=== PATIENT | male | born 1945 | race Caucasian/White ===

== ENCOUNTER → 2017-09-28 | Outpatient (CLI) | payer OTHER, MEDICARE ==
--- NOTE | 2017-09-28 08:24 | DIAGNOSTIC IMAGING REPORT ---
SINUSES WITH BRAIN LAB CT DOSE: 305.32 mGycm HISTORY: Sinusitis CHRONIC SINUSITIS TECHNIQUE: Multiaxial CT images of the paranasal sinuses were performed and reformatted in the coronal plane without the use of contrast. A dose lowering technique was utilized adhering to the principles of ALARA. COMPARISON: None. FINDINGS: The frontal sinuses, ethmoid air cells, sphenoid sinuses, and bilateral maxillary antra are clear. The mastoid air cells are clear. The bilateral ostiomeatal units are patent. The nasal septum is midline. The orbits are unremarkable. Mild hypertrophic change of the nasal turbinates creating mild degree of nasal occlusive change. Mild nasal septal displacement to the left. IMPRESSION: The paranasal sinuses and mastoid air cells are clear. Mild/moderate hypertrophic changes of nasal turbinates. Moderate nasal occlusive change. The above report was generated using voice recognition software. It may contain grammatical, syntax or spelling errors. Electronically signed by: Luis Brown M.D. 09/28/2017 8:23 AM Dictated Date/Time: 09/28/2017 7:58 AM
== END | disposition home or self-care (01) ==
LOC: C.CTS 07:42
PROVIDERS: ATTEND Otolaryngology
DX: J32.9 Chronic sinusitis, unspecified (principal)

== ENCOUNTER 2017-10-31 20:43 | Emergency (ER) | payer OTHER, MEDICARE ==
[~2017-10-31] VITALS: Ht 174 cm; Wt 80.5 kg
[2017-10-31 20:45] VITALS: TEMP 36.7; Ht 174 cm; Wt 80.5 kg
[2017-10-31 21:40] LABS: BASO % 0.2 %; BASO ABS # 0.02 K/uL (0-0.2); EOS % 0.5 %; EOS ABS # 0.04 K/uL (0-0.5); HEMATOCRIT 43.5 % (42-52); HEMOGLOBIN 14.9 g/dL (14.0-18.0); IG# 0.04 K/uL (0.00-0.02); LYMPH % 14.4 %; LYMPH ABS # 1.19 K/uL (1.2-3.4); MEAN CELL VOLUME 88.8 fL (80-100); MEAN CORPUSCULAR HEMOGLOBIN 30.4 pg (25-34); MEAN CORPUSCULAR HGB CONC 34.3 g/dl (32-36); MEAN PLATELET VOLUME 10.1 fL (7.4-10.4); MONO % 3.6 %; NEUT % 80.8 %; NEUT ABS # 6.66 K/uL (1.4-6.5); PLATELET COUNT 222 K/uL (130-400); RED CELL DISTRIBUTION WIDTH CV 13.4 % (11.5-14.5); RED CELL DISTRIBUTION WIDTH SD 43.4 fL (36.4-46.3); WHITE BLOOD COUNT 8.25 K/uL (4.8-10.8)
[2017-10-31 22:06] LABS: ALBUMIN 3.8 gm/dl (3.4-5.0); CALCIUM 8.6 mg/dl (8.5-10.1); CREATININE 1.54 mg/dl (0.60-1.40); POTASSIUM 3.6 mmol/L (3.5-5.1)
[2017-10-31 22:09] LABS: TOTAL PROTEIN 7.5 gm/dl (6.4-8.2)
--- NOTE | 2017-10-31 22:22 | DIAGNOSTIC IMAGING REPORT ---
L WRIST MIN 3 VIEWS ROUTINE, L HAND MIN 3 VIEWS ROUTINE CLINICAL HISTORY: left wrist and hand injury; hit with baseball COMPARISON STUDY: None. FINDINGS: Soft tissue swelling within the left wrist. No fracture or dislocation. Deformity and shortening within the index finger with erosions at the DIP and PIP joint. Additional erosions within the MCP joints, first carpometacarpal joint, and triquetral bone. There is advanced osteoarthritis within the first carpometacarpal joint and mild to moderate osteoarthritis within the MCP, PIP, DIP joints of the hand. Soft tissue swelling within the index finger. IMPRESSION: 1. No acute fractures identified within the left hand or left wrist. 2. Soft tissue swelling within the left wrist. 3. Erosions within the left hand and wrist as described above most pronounced at the index finger consistent with psoriatic arthritis. There is superimposed osteoarthritis within the hand and wrist as described above. Electronically signed by: Abhay Trevizo M.D. 10/31/2017 10:21 PM Dictated Date/Time: 10/31/2017 10:17 PM
--- NOTE | 2017-10-31 22:46 | EMERGENCY ROOM VISIT NOTE ---
History First contact with patient: 20:54 Chief Complaint: HAND PAIN/INJURY Stated Complaint: HIT WITH BASEBALL- LEFT HAND, PASSED OUT History of Present Illness The patient is a 72 year old male who presents to the Emergency Room with complaints of an injury to his left hand. 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 The patient's is concerned because she feels he may have passed out. The patient reports that he had a significant amount of pain following the injury and lost his balance when he went to sit down. The animal trainer evaluated him there and reported that his blood pressure was low at that time. The patient is feeling much better now and rates his discomfort a 1/10. His states that he has been very tired for the past few weeks. The patient denies any further concerns. He denies any numbness or weakness of the hand. He denies chest pain or shortness of breath. Review of Systems A complete 10 point review of systems was reviewed with the patient with pertinent positives and negatives as per history of present illness. All else were negative. Past Medical/Surgical History Medical Problems: (1) No significant active problems Social History Smoking Status: Never Smoker Alcohol Use: none Housing Status: lives with family Physical Exam Vital Signs Date Time Temp Pulse Resp B/P (MAP) Pulse Ox O2 Delivery O2 Flow Rate FiO2 10/31/17 23:02 74 16 136/78 98 10/31/17 20:45 36.7 84 16 133/80 96 Room Air Physical Exam VITALS: Vitals are noted on the nurse's note and reviewed by myself. Vital signs stable. GENERAL: This is a 72-year-old male, in no acute distress, nondiaphoretic, well- developed well-nourished. SKIN: There is some mild swelling and ecchymosis over the lateral aspect of the left dorsal wrist/hand. EARS: External auditory canals clear, tympanic membranes pearly almaguer without erythema or effusion bilaterally. EYES: Pupils equal round and reactive to light and accommodation. Extraocular movements intact. MOUTH: Mucous membranes moist. Tonsils are not enlarged. Pharynx without erythema or exudate. NECK: Supple without nuchal rigidity. No lymphadenopathy. HEART: Regular rate and rhythm without murmurs gallops or rubs. LUNGS: Clear to auscultation bilaterally without wheezes, rales or rhonchi. No retractions or accessory muscle use. MUSCULOSKELETAL: Strength 5/5 throughout. NEURO: Patient was alert and oriented to person place and time. No focal neurological deficits. Medical Decision & Procedures ER Provider Diagnostic Interpretation: L WRIST MIN 3 VIEWS ROUTINE, L HAND MIN 3 VIEWS ROUTINE CLINICAL HISTORY: left wrist and hand injury; hit with baseball COMPARISON STUDY: None. FINDINGS: Soft tissue swelling within the left wrist. No fracture or dislocation. Deformity and shortening within the index finger with erosions at the DIP and PIP joint. Additional erosions within the MCP joints, first carpometacarpal joint, and triquetral bone. There is advanced osteoarthritis within the first carpometacarpal joint and mild to moderate osteoarthritis within the MCP, PIP, DIP joints of the hand. Soft tissue swelling within the index finger. IMPRESSION: 1. No acute fractures identified within the left hand or left wrist. 2. Soft tissue swelling within the left wrist. 3. Erosions within the left hand and wrist as described above most pronounced at the index finger consistent with psoriatic arthritis. There is superimposed osteoarthritis within the hand and wrist as described above. Electronically signed by: Abhay Trevizo M.D. Laboratory Results 10/31/17 21:19 Red Blood Count 4.90, Mean Corpuscular Volume 88.8, Mean Corpuscular Hemoglobin 30.4, Mean Corpuscular Hemoglobin Concent 34.3, Mean Platelet Volume 10.1, Neutrophils (%) (Auto) 80.8, Lymphocytes (%) (Auto) 14.4, Monocytes (%) (Auto) 3.6, Eosinophils (%) (Auto) 0.5, Basophils (%) (Auto) 0.2, Neutrophils # (Auto) 6.66, Lymphocytes # (Auto) 1.19, Monocytes # (Auto) 0.30, Eosinophils # (Auto) 0.04, Basophils # (Auto) 0.02 10/31/17 21:19 Test 10/31/17 21:19 White Blood Count 8.25 K/uL (4.8-10.8) Red Blood Count 4.90 M/uL (4.7-6.1) Hemoglobin 14.9 g/dL (14.0-18.0) Hematocrit 43.5 % (42-52) Mean Corpuscular Volume 88.8 fL (80-100) Mean Corpuscular Hemoglobin 30.4 pg (25-34) Mean Corpuscular Hemoglobin Concent 34.3 g/dl (32-36) Platelet Count 222 K/uL (130-400) Mean Platelet Volume 10.1 fL (7.4-10.4) Neutrophils (%) (Auto) 80.8 % Lymphocytes (%) (Auto) 14.4 % Monocytes (%) (Auto) 3.6 % Eosinophils (%) (Auto) 0.5 % Basophils (%) (Auto) 0.2 % Neutrophils # (Auto) 6.66 K/uL (1.4-6.5) Lymphocytes # (Auto) 1.19 K/uL (1.2-3.4) Monocytes # (Auto) 0.30 K/uL (0.11-0.59) Eosinophils # (Auto) 0.04 K/uL (0-0.5) Basophils # (Auto) 0.02 K/uL (0-0.2) RDW Standard Deviation 43.4 fL (36.4-46.3) RDW Coefficient of Variation 13.4 % (11.5-14.5) Immature Granulocyte % (Auto) 0.5 % Immature Granulocyte # (Auto) 0.04 K/uL (0.00-0.02) Urine Color YELLOW Urine Appearance CLEAR (CLEAR) Urine pH 5.5 (4.5-7.5) Urine Specific [place] 1.022 (1.000-1.030) Urine Protein NEG (NEG) Urine Glucose (UA) NEG (NEG) Urine Ketones NEG (NEG) Urine Occult Blood NEG (NEG) Urine Nitrite NEG (NEG) Urine Bilirubin NEG (NEG) Urine Urobilinogen NEG (NEG) Urine Leukocyte Esterase NEG (NEG) Anion Gap 6.0 mmol/L (3-11) Est Creatinine Clear Calc Drug Dose 42.0 ml/min Estimated GFR () 51.1 Estimated GFR (Non- 44.1 BUN/Creatinine Ratio 16.8 (10-20) Calcium Level 8.6 mg/dl (8.5-10.1) Total Bilirubin 0.5 mg/dl (0.2-1) Aspartate Amino Transf (AST/SGOT) 28 U/L (15-37) Alanine Aminotransferase (ALT/SGPT) 32 U/L (12-78) Alkaline Phosphatase 80 U/L (45-117) Total Protein 7.5 gm/dl (6.4-8.2) Albumin 3.8 gm/dl (3.4-5.0) Globulin 3.7 gm/dl (2.5-4.0) Albumin/Globulin Ratio 1.0 (0.9-2) ECG Per My Interpretation Indication: weakness Rate (beats per minute): 81 Rhythm: normal sinus Findings: no acute ischemic change, no ectopy Comparison ECG Date: no prior available Medical Decision Differential diagnosis includes fracture, contusion, sprain, vasovagal response , anemia, arrhythmia, among others. The patient is a 72-year-old male who presents today complaining of an injury to his left hand and wrist. X-rays showed no acute fractures. Further workup was obtained because of patient's 's concern of possible syncopal episode. Labs revealed no leukocytosis, anemia or concerning electrolyte abnormalities. Creatinine slightly elevated at 1.54, although this is likely patient's baseline as his most recent creatinine was done several years ago at 1.3. EKG shows normal sinus rhythm without ischemic changes or ectopy. Patient's response was likely a vagal response to pain. He was advised to follow-up closely with his PCP this week for follow-up. The patient was independently evaluated by Dr. Skinner, ED attending physician, who agreed with my assessment and treatment plan. Based on the patient's presentation and work up, I feel the patient is stable for outpatient treatment. The patient was educated to return to the emergency department for any worsening of their current condition or new/concerning symptoms. He will follow up with his PCP. Medication Reconcilliation Current Medication List: was personally reviewed by me Blood Pressure Screening Patient's blood pressure: Normal blood pressure Impression Primary Impression: Contusion of left hand Additional Impression: Vasovagal response Departure Information Dispostion Home / Self-Care Condition GOOD Referrals Elijah Marcos M.D. (PCP) Patient Instructions My [facility] Additional Instructions For pain control, you can use the following [id number] medicines (if >12 yo): - Regular strength (325mg/tab) Tylenol (acetaminophen) 2 tabs every 4-6 hours as needed. Do not exceed 12 tablets in a 24 hour period. Avoid taking more than 4 grams (4000 mg) of Tylenol per day. This includes any other sources of acetaminophen you may take on a regular basis. Apply ice to the hand to help reduce swelling. Follow-up with your primary care provider this week for a recheck. Return to the emergency department with any worsening or new/concerning symptoms. Problem Qualifiers
[2017-10-31 23:02] VITALS: BP 136/78; PULSE 74; O2SAT 98
== END 2017-10-31 23:10 | disposition home or self-care (01) ==
LOC: C.EDB 20:44 → C.EDD 23:10
DX: S60.222A Contusion of left hand, initial encounter (principal); R55 Syncope and collapse; W21.89XA Striking against or struck by other sports equipment, initial encounter

== ENCOUNTER 2021-06-03 18:10 | Inpatient (IN) ==
[2021-06-03] MEDS ORDERED: SODIUM CHLORIDE 0.9% 1000ML 1,000 ML IV SCH (18:30)
--- NOTE | 2021-06-03 18:36 | Emergency Department Note ---
Impression & Plan COVID-19, Weakness, Rhabdomyolysis due to COVID-19 ED Provider Note Provider: Jag Lemons MD DATE OF SERVICE: 06/03/2021 CHIEF COMPLAINT: Fatigue, no appetite HISTORY OF PRESENT ILLNESS: Patient is a 76-year-old gentleman history of NPH status post shunt several years ago as well as renal carcinoma presenting via ambulance today from home. Patient has been sick for about 10 days with initially cold type symptoms. Was seen here 2 days ago in the ER and diagnosed with Covid per his with the patient limited contact via phone. Patient himself states that he just feels generally weak and has no appetite. Denies diarrhea or abdominal pain or nausea. Reports a mild diffuse myalgias but denies difficulty breathing. Minimal cough. No fevers reported. No falls or syncope. Patient states yesterday had difficult time getting off of the toilet and had a weight for more than an hour as he did want to bother his . Again he denies falls. Discussed with the patient she reports that he is just very weak and fatigued. She states he did have some loose [place] last night. She states that he has had some memory issues for a little while and they have been following with neurosurgery and [facility] in [place] regarding this. She reports that he is not vaccinated and has not had recent fever. REVIEW OF SYSTEMS: A total of 10 review of systems was obtained and negative except as stated above in the HPI. PAST MEDICAL HISTORY: As noted above MEDICATIONS: Denies current prescription medications SOCIAL HISTORY: Lives at home with PHYSICAL EXAM: GENERAL: alert and oriented in no acute distress on stretcher but fatigued Head: Atraumatic with evidence of right frontal subcutaneous shunt in place. EYES: No injection, discharge or icterus. PERRL NECK: Trachea midline. LUNGS: Airway patent. No retractions or tachypnea HEART: Regular rate and rhythm. No chest wall tenderness ABDOMEN: Soft and non-tender, without guarding or rebound. SKIN: Acyanotic, warm, dry, without rashes EXTREMITIES: Without swelling, tenderness or deformity NEUROLOGICAL: No focal deficits. No aphasia. No facial droop or slurred speech. Little bit of mild slowness to his memory during discussion. Normal strength and tone in the extremities. Sensation to gross touch normal. EK bpm normal sinus rhythm without PVC or PAC. No acute ST segment elevation or depression with a QTC of 440. Slight baseline artifact is noted. CONTINUOUS CARDIAC MONITORING: was ordered and showed a heart rate of 70s-80s bpm in normal sinus rhythm Patient's laboratory studies and imaging reviewed. Differential includes Infection, dehydration, metabolic abnormality, hypo/hyper glycemia, electrolyte disturbance, anemia, hypoxia, cardiac sources, intracerebral event, toxicologic, neurologic, as well as other pathologies. IMPRESSION/MEDICAL DECISION MAKING: Patient seen here 2 days ago and had positive Covid test. Sick for 10 days. Not vaccinated. Not hypoxic and denies significant respiratory symptoms. No trauma or syncope reported by patient or his via phone. Patient had imaging including shunt series 2 days ago without acute findings. Report of may be some loose Nations last night but the patient other than being a bit forgetful around exact details of his recent illness is following commands and moving all extremities without slurred speech or. Basic labs are completed. Benign abdomen. Do not believe the patient is meningitic. Improvement of white blood cell count and no anemia noted on blood work today. Some mild thrombocytopenia has developed likely viral related to his Covid illness. Mild hyponatremia similar to previous and improved renal function today compared to 2 days ago. AST more elevated but ALT not elevated consistent likely with viral inflammatory changes. CTs of the head without acute change. No troponin elevation. CPK is elevated likely related to his viral Covid infection and consistent with his myalgias. No significant trauma reported. Given some fluid hydration here and discussed with the patient as well as via phone recommendation for further care here at the hospital. Patient does not seem to be acutely hallucinating or altered at this time although he seems fatigued. DIAGNOSIS: COVID-19, weakness, rhabdomyolysis DISPOSITION: Hospitalist will evaluate Patient was agreeable with this plan. 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 Hyperlipidemia Incontinence Lumbar radiculopathy Mild cognitive impairment Muscular weakness No significant active problems NPH (normal pressure hydrocephalus) Stroke-like symptoms Urinary frequency Urinary urgency Ventricular dilatation Surgical History History of brain shunt History of carpal tunnel surgery of right wrist History of inguinal hernia repair History of tonsillectomy Hx of cataract surgery Family History Mother Diabetes Colon cancer Stroke Grandmother Diabetes Father Cardiac disorder Myasthenia gravis Grandmother Heart failure Family/Other Black lung Social History Smoking Status: Never smoker Hx Alcohol Use: No Hx Substance Use: No Preferred Language: Nepalese Communication Ability: Effective Visual Impairment: Limited Hearing Ability: Normal Utilization Engineer Required: No Beliefs That Will Affect Care: None marital status: Current Living Situation: Spouse current occupational status: retired Feels Safe at Home: Yes Assistive Devices: Walker Allergies Allergies Allergy/AdvReac Type Severity Reaction Status Date / Time cat dander Allergy Verified 06/03/21 20:34 No Known Drug Allergies Allergy Verified 06/03/21 20:34 Home Meds Home Medications Medication Instructions Recorded Confirmed omega [id number] oil 600 1 cap PO DAILY 06/27/19 06/03/21 mg-20 mg-500 mcg-800 mcg capsule (CardioVid PLUS) amino acids 1 cap PO DAILY 02/05/21 06/03/21 lactobacillus combination no.4 3 0 mmu cells PO DAILY 02/05/21 06/03/21 billion cell capsule (Probiotic) multivitamin 1 tab PO DAILY 02/05/21 06/03/21 vitamins A and D3 in cod liver oil 1 cap PO DAILY 02/05/21 06/03/21 1,250 unit-135 unit capsule (cod liver oil) ascorbic acid (vitamin C) 250 mg 0 mg PO DAILY 06/01/21 06/03/21 tablet Results & Data (ED) Vital Signs Vital Signs - 24 hr 06/03/21 18:20 06/03/21 18:26 06/03/21 18:30 Temperature 37.0 C Temperature Source Oral Pulse Rate 77 71 75 Pulse Rate [Right Finger] Pulse Rate from SpO2 Sensor 74 75 Pulse Rhythm [Right Finger] Respiratory Rate 15 20 18 Respiratory Effort / Characteristics Respiratory Depth Blood Pressure 142/87 H Blood Pressure [Left Arm] Blood Pressure Mean 105 Blood Pressure Mean [Left Arm] Blood Pressure Position [Left Arm] Pulse Oximetry 98 96 96 Oxygen Delivery Method Room Air Sepsis Recent Fever Within 48 Hours No Sepsis New/Unexplained Change in Mental Status N/A Sepsis Action Taken by Nursing No Action Required 06/03/21 18:40 06/03/21 18:50 06/03/21 19:00 Temperature Temperature Source Pulse Rate 77 74 74 Pulse Rate [Right Finger] Pulse Rate from SpO2 Sensor 77 Pulse Rhythm [Right Finger] Respiratory Rate 16 20 19 Respiratory Effort / Characteristics Respiratory Depth Blood Pressure Blood Pressure [Left Arm] Blood Pressure Mean Blood Pressure Mean [Left Arm] Blood Pressure Position [Left Arm] Pulse Oximetry 98 Oxygen Delivery Method Sepsis Recent Fever Within 48 Hours Sepsis New/Unexplained Change in Mental Status Sepsis Action Taken by Nursing 06/03/21 19:10 06/03/21 19:20 06/03/21 19:30 Temperature Temperature Source Pulse Rate 73 70 71 Pulse Rate [Right Finger] Pulse Rate from SpO2 Sensor Pulse Rhythm [Right Finger] Respiratory Rate 18 16 23 Respiratory Effort / Characteristics Respiratory Depth Blood Pressure 142/87 H Blood Pressure [Left Arm] Blood Pressure Mean 105 Blood Pressure Mean [Left Arm] Blood Pressure Position [Left Arm] Pulse Oximetry Oxygen Delivery Method Sepsis Recent Fever Within 48 Hours Sepsis New/Unexplained Change in Mental Status Sepsis Action Taken by Nursing 06/03/21 19:50 06/03/21 20:00 06/03/21 20:10 Temperature Temperature Source Pulse Rate 79 86 73 Pulse Rate [Right Finger] Pulse Rate from SpO2 Sensor 77 85 72 Pulse Rhythm [Right Finger] Respiratory Rate 18 23 22 Respiratory Effort / Characteristics Respiratory Depth Blood Pressure Blood Pressure [Left Arm] Blood Pressure Mean Blood Pressure Mean [Left Arm] Blood Pressure Position [Left Arm] Pulse Oximetry 97 94 96 Oxygen Delivery Method Sepsis Recent Fever Within 48 Hours Sepsis New/Unexplained Change in Mental Status Sepsis Action Taken by Nursing 06/03/21 20:13 06/03/21 20:20 06/03/21 20:30 Temperature Temperature Source Pulse Rate 80 75 Pulse Rate [Right Finger] 86 Pulse Rate from SpO2 Sensor 80 75 Pulse Rhythm [Right Finger] Regular Respiratory Rate 20 13 16 Respiratory Effort / Characteristics Spontaneous Respiratory Depth Normal Blood Pressure Blood Pressure [Left Arm] 144/86 H Blood Pressure Mean Blood Pressure Mean [Left Arm] 105 Blood Pressure Position [Left Arm] Lying Pulse Oximetry 96 95 96 Oxygen Delivery Method Room Air Sepsis Recent Fever Within 48 Hours Sepsis New/Unexplained Change in Mental Status Sepsis Action Taken by Nursing 06/03/21 20:40 06/03/21 20:50 06/03/21 21:00 Temperature Temperature Source Pulse Rate 79 79 81 Pulse Rate [Right Finger] Pulse Rate from SpO2 Sensor 79 78 73 Pulse Rhythm [Right Finger] Respiratory Rate 24 22 20 Respiratory Effort / Characteristics Respiratory Depth Blood Pressure Blood Pressure [Left Arm] Blood Pressure Mean Blood Pressure Mean [Left Arm] Blood Pressure Position [Left Arm] Pulse Oximetry 98 95 95 Oxygen Delivery Method Sepsis Recent Fever Within 48 Hours Sepsis New/Unexplained Change in Mental Status Sepsis Action Taken by Nursing Laboratory Data Result diagrams: 06/03/21 18:46 06/03/21 18:46 Lab Results 06/03/21 06/03/21 Range/Units 18:46 18:46 WBC 4.98 (4.8-10.8) K/uL RBC 5.10 (4.7-6.1) M/uL Hgb 15.2 (14.0-18.0) g/dL Hct 44.1 (42-52) % MCV 86.5 (80-100) fL MCH 29.8 (25-34) pg MCHC 34.5 (32-36) g/dL RDW Std Deviation 43.8 (36.4-46.3) fL RDW Coeff of María Elena 13.9 (11.5-14.5) % Plt Count 129 L (130-400) K/uL MPV 10.2 (7.4-10.4) fL Immature Gran % (Auto) 0.2 % Neut % (Auto) 69.1 % Lymph % (Auto) 22.7 % [place] % (Auto) 7.8 % Eos % (Auto) 0.0 % Baso % (Auto) 0.2 % Neut # (Auto) 3.44 (1.4-6.5) K/uL Lymph # (Auto) 1.13 L (1.2-3.4) K/uL [place] # (Auto) 0.39 (0.11-0.59) K/uL Eos # (Auto) 0.00 (0-0.5) K/uL Baso # (Auto) 0.01 (0-0.2) K/uL Immature Gran # (Auto) 0.01 (0.00-0.02) K/uL Sodium 133 L (136-145) mmol/L Potassium 3.7 (3.5-5.1) mmol/L Chloride 102 (98-107) mmol/L Carbon Dioxide 24 (21-32) mmol/L Anion Gap 7.0 (3-11) BUN 34 H (7-18) mg/dl Creatinine 1.39 (0.6-1.4) mg/dl Est Cr Clr Drug Dosing 43.1 ml/min Est GFR ( Amer) 56.3 ml/min Est GFR (Non-Af Amer) 48.5 ml/min BUN/Creatinine Ratio 24.3 H (10-20) Glucose 89 (70-99) mg/dl Calcium 7.9 L (8.5-10.1) mg/dl Magnesium 2.3 (1.8-2.4) mg/dl Total Bilirubin 0.6 (0.2-1) mg/dl AST 199 H (15-37) U/L ALT 67 (12-78) U/L Alkaline Phosphatase 80 (45-117) U/L Total Creatine Kinase 5566 H (39-308) U/L Troponin I 0.032 (0-0.045) ng/ml Total Protein 7.0 (6.4-8.2) gm/dl Albumin 2.9 L (3.4-5.0) gm/dl Globulin 4.1 H (2.5-4.0) gm/dl Albumin/Globulin Ratio 0.7 L (0.9-2) TSH 1.580 (0.300-4.500) uIu/ml Administered Medications Enoxaparin Sodium (Enoxaparin Inj 30 Mg/0.3 Ml Syr) 30 mg SQ Q24H HAILEE Stop: 07/03/21 23:44 Last Admin: 06/04/21 00:56 Dose: 30 mg Documented by: [id number] Sodium Chloride (Nss 1000ml) 1,000 mls @ 80 mls/hr IV .[id number] HAILEE Stop: 06/05/21 00:04 Last Admin: 06/04/21 00:56 Dose: 80 mls/hr Documented by: [id number] Discontinued Medications Dexamethasone (Dexamethasone Sod Inj 4 Mg/Ml Vial) 6 mg IV NOW STA Stop: 06/03/21 21:15 Last Admin: 06/03/21 22:13 Dose: 6 mg Documented by: [id number] Sodium Chloride (Nss 1000ml) 1,000 mls @ 999 mls/hr IV .Q1H1M HAILEE Stop: 06/03/21 19:30 Last Infusion: 06/03/21 23:37 Dose: 0 mls/hr Documented by: [id number] Admin: 06/03/21 19:13 Dose: 999 mls/hr Documented by: [id number] Imaging Data Radiologist's Impression: Chest X-Ray 06/03/21 18:24 XR chest 1V portable HISTORY: weakness/COVID COMPARISON: Chest 06/01/2021. FINDINGS: Shunt tubing is again noted along the right side of the chest and crosses over the midline within the upper abdomen. The tubing appears intact. No pneumothorax. No pleural effusions. The heart is normal in size. No focal lung consolidations to suggest pneumonia. No evidence for pulmonary edema. IMPRESSION: No significant change compared to the prior study. No acute process. ACT 112: Negative or not required by law. Electronically signed by: Abhay Trevizo M.D. 06/03/2021 8:[address] 06/03/21 18:[address] DOSE: 537.48 mGy.cm HISTORY: weakness TECHNIQUE: Multiaxial CT images of the head were performed without the use of intravenous contrast. Automated exposure control was utilized for this study. A dose lowering technique was utilized adhering to the principles of ALARA. Comparison: Head CT 05/30/2021. Findings: The paranasal sinuses and mastoid air cells are clear. The calvarium and skull base are intact. There is no mass, hematoma, midline shift, acute infarct. Right frontal approach ventriculostomy catheter terminates in the frontal horn of the right lateral ventricle. This is unchanged in position. Stable mild prominence of the lateral ventricles. Impression: No significant change compared to the prior study. No acute intracranial abnorm ality. ACT 112: Negative or not required by law. Electronically signed by: Abhay Trevizo M.D. 06/03/2021 7:53 PM Discharge Plan Visit Data Chief Complaint: Illness Stated Complaint: Illness ED Provider: Jag Lemons Discharge Problem: COVID-19, Weakness, Rhabdomyolysis due to COVID-19 Patient Disposition: Admitted As Inpatient Discharge Instructions Interventions: ED Discharge Assessment Last Done: 06/03/21 23:55
[2021-06-03 18:53] LABS: Basophils # (auto) 0.01 K/uL (0-0.2); Basophils % (auto) 0.2 %; Hematocrit (blood only) 44.1 % (42-52); Hemoglobin 15.2 g/dL (14.0-18.0); Immature Granulocytes # (auto) 0.01 K/uL (0.00-0.02); Immature Granulocytes % (auto) 0.2 %; Lymphocytes # (auto) 1.13 K/uL (1.2-3.4); Lymphocytes % (auto) 22.7 %; Mean Corpuscular Hemoglobin 29.8 pg (25-34); Mean Corpuscular Hgb Conc 34.5 g/dL (32-36); Mean Corpuscular Volume 86.5 fL (80-100); Mean Platelet Volume 10.2 fL (7.4-10.4); Monocytes # (auto) 0.39 K/uL (0.11-0.59); Monocytes % (auto) 7.8 %; Neutrophils # (auto) 3.44 K/uL (1.4-6.5); Neutrophils % (auto) 69.1 %; Platelet Count 129 K/uL (130-400); RDW Coefficient of Variation 13.9 % (11.5-14.5); RDW Standard Deviation 43.8 fL (36.4-46.3); White Blood Count 4.98 K/uL (4.8-10.8)
[2021-06-03 19:13] LABS: Albumin Level 2.9 gm/dl (3.4-5.0); BUN Creatinine Ratio 24.3 (10-20); Calcium 7.9 mg/dl (8.5-10.1); Creatinine Clr Calc Pharmacy 43.1 ml/min; Est GFR (African American) 56.3 ml/min; Est GFR (Non-African American) 48.5 ml/min; Magnesium 2.3 mg/dl (1.8-2.4); Potassium 3.7 mmol/L (3.5-5.1)
[2021-06-03 19:28] LABS: Albumin Globulin Ratio 0.7 (0.9-2); Bilirubin,Total 0.6 mg/dl (0.2-1); Globulin 4.1 gm/dl (2.5-4.0); Thyroid Stimulating Hormone 1.58 uIu/ml (0.300-4.500); Troponin I 0.032 ng/ml (0-0.045)
--- NOTE | 2021-06-03 19:54 | CT Scan Report ---
HEAD CT NONCONTRAST CT DOSE: 537.48 mGy.cm HISTORY: weakness TECHNIQUE: Multiaxial CT images of the head were performed without the use of intravenous contrast. A utomated exposure control was utilized for this study. A dose lowering technique was utilized adheri ng to the principles of ALARA. Comparison: Head CT 05/30/2021. Findings: The paranasal sinuses and mastoid air cells are clear. The calvarium and skull base are int act. There is no mass, hematoma, midline shift, acute infarct. Right frontal approach ventriculostomy catheter terminates in the frontal horn of the right lateral ventricle. This is unchanged in positio n. Stable mild prominence of the lateral ventricles. Impression: No significant change compared to the prior study. No acute intracranial abnormality. ACT 112: Negative or not required by law. Electronically signed by: Abhay Trevizo M.D. 06/03/2021 7:53 PM
--- NOTE | 2021-06-03 20:30 | XRay Report ---
XR chest 1V portable HISTORY: weakness/COVID COMPARISON: Chest 06/01/2021. FINDINGS: Shunt tubing is again noted along the right side of the chest and crosses over the midline within the upper abdomen. The tubing appears intact. No pneumothorax. No pleural effusions. The heart is normal in size. No focal lung consolidations to suggest pneumonia. No evidence for pulmonary manuela a. IMPRESSION: No significant change compared to the prior study. No acute process. ACT 112: Negative or not required by law. Electronically signed by: Abhay Trevizo M.D. 06/03/2021 8:29 PM
[2021-06-03] MEDS ORDERED: dexAMETHasone 6 MG in SYRINGE 0 ML IV ONE (21:09)
--- NOTE | 2021-06-03 21:11 | History & Physical Report ---
Date of Service June 03, 2021 Assessment & Plan (1) COVID-19: Plan: Rhabdomyolysis due to COVID-19 infection- CK 5566 upon admission AST 199 on admission Decadron 6 mg IV every morning NSS at 80 mils per hour x2 L Follow serial laboratories Will need PT/OT assessment prior to discharge, patient looks like he may require a SNF stay for rehab (2) Rhabdomyolysis due to COVID-19: Plan: See above (3) Acute confusion: Plan: Acute confusion/mild cognitive impairment- Likely secondary to COVID-19 itself, rhabdomyolysis, dehydration. (4) NPH (normal pressure hydrocephalus): Plan: CT scan unchanged (5) Mild cognitive impairment: Plan: See above History of Present Illness Chief Complaint: The patient is brought to the emergency department due to 2 weeks of persistent and progressive fatigue, with the development of confusion and hallucinations the previous evening per his Primary Care Provider: Elijah Marcos The patient is a 76-year-old male with a past medical history including renal cell carcinoma, carpal tunnel syndrome, abnormal brain MRI, BPH with LUTS, gait apraxia, hyperlipidemia, urinary incontinence, lumbar radiculopathy, mild cognitive impairment, NPH, strokelike symptoms, and vasovagal response. The patient had been seen in the emergency department on 06/01/2021, and COVID-19 testing at that time was positive. He is brought into the emergency department by family with the above complaint. The patient himself is is somewhat lethargic, and unable to significantly relay any information to me regarding his HPI or review of systems. Allergies Allergy/AdvReac Type Severity Reaction Status Date / Time cat dander Allergy Verified 06/03/21 20:34 No Known Drug Allergies Allergy Verified 06/03/21 20:34 Home Medications Medication Instructions Recorded Confirmed Type omega [id number]-drey oil 600 1 cap PO DAILY 06/27/19 06/03/21 History mg-20 mg-500 mcg-800 mcg capsule (CardioVid PLUS) amino acids 1 cap PO DAILY 02/05/21 06/03/21 History lactobacillus combination no.4 3 0 mmu cells PO DAILY 02/05/21 06/03/21 History billion cell capsule (Probiotic) multivitamin 1 tab PO DAILY 02/05/21 06/03/21 History vitamins A and D3 in cod liver oil 1 cap PO DAILY 02/05/21 06/03/21 History 1,250 unit-135 unit capsule (cod liver oil) ascorbic acid (vitamin C) 250 mg 0 mg PO DAILY 06/01/21 06/03/21 History tablet Past Med/Surg History Medical History (Updated 06/03/21 @ 21:51 by Quoc Negron MD) Abnormal brain MRI Arthritis Benign prostatic hyperplasia with urinary obstruction Gait apraxia Hyperlipidemia Incontinence Lumbar radiculopathy Mild cognitive impairment Muscular weakness No significant active problems NPH (normal pressure hydrocephalus) Stroke-like symptoms Urinary frequency Urinary urgency Ventricular dilatation Surgical History History of brain shunt History of carpal tunnel surgery of right wrist History of inguinal hernia repair History of tonsillectomy Hx of cataract surgery Family History Mother Diabetes Colon cancer Stroke Grandmother Diabetes Father Cardiac disorder Myasthenia gravis Grandmother Heart failure Family/Other Black lung Social History Smoking Status: Never smoker Hx Alcohol Use: No Hx Substance Use: No Preferred Language: Serbian Communication Ability: Effective Visual Impairment: Limited Hearing Ability: Normal Beliefs That Will Affect Care: None marital status: Current Living Situation: Spouse current occupational status: retired Feels Safe at Home: Yes Review of Systems Review of Systems: Unable to be obtained due to to the patient confusion Physical Exam Physical Exam: The patient is awake, confused, looks dehydrated, mild facial erythema, lying in bed and in no acute distress. HEENT--PERRL, EOMI, mucous membranes and oropharynx moderately dry. Neck--supple. No JVD. No bruits. Thyroid normal, trachea midline, no adenopathy. Heart--normal S1 and S2. No murmurs, rubs or gallops. Lungs--clear bilaterally, no respiratory distress, no accessory muscle use. Abdomen--normal bowel sounds and soft. Nontender. Nondistended, no hernias or masses, no organomegaly. Extremities--no cyanosis or clubbing. No edema. Dermatologic--skin moderately dry Neurologic--cranial nerves II through XII grossly intact. Rheumatologic--limited exam Psychiatric--confused and mildly lethargic Results & Data Results & Data ([facility]) Vital Signs (Past 12 Hours) Vital Signs Temp Pulse Resp BP Pulse Ox 06/03/21 18:26 37.0 C 71 20 142/87 H 96 Laboratory Results Laboratory Results WBC 4.98 K/uL (4.8-10.8) 06/03/21 18:46 RBC 5.10 M/uL (4.7-6.1) 06/03/21 18:46 Hgb 15.2 g/dL (14.0-18.0) 06/03/21 18:46 Hct 44.1 % (42-52) 06/03/21 18:46 MCV 86.5 fL (80-100) 06/03/21 18:46 MCH 29.8 pg (25-34) 06/03/21 18:46 MCHC 34.5 g/dL (32-36) 06/03/21 18:46 RDW Std Deviation 43.8 fL (36.4-46.3) 06/03/21 18:46 RDW Coeff of María Elena 13.9 % (11.5-14.5) 06/03/21 18:46 Plt Count 129 K/uL (130-400) L 06/03/21 18:46 MPV 10.2 fL (7.4-10.4) 06/03/21 18:46 Immature Gran % (Auto) 0.2 % 06/03/21 18:46 Neut % (Auto) 69.1 % 06/03/21 18:46 Lymph % (Auto) 22.7 % 06/03/21 18:46 [place]born % (Auto) 7.8 % 06/03/21 18:46 Eos % (Auto) 0.0 % 06/03/21 18:46 Baso % (Auto) 0.2 % 06/03/21 18:46 Neut # (Auto) 3.44 K/uL (1.4-6.5) 06/03/21 18:46 Lymph # (Auto) 1.13 K/uL (1.2-3.4) L 06/03/21 18:46 Sanborn # (Auto) 0.39 K/uL (0.11-0.59) 06/03/21 18:46 Eos # (Auto) 0.00 K/uL (0-0.5) 06/03/21 18:46 Baso # (Auto) 0.01 K/uL (0-0.2) 06/03/21 18:46 Immature Gran # (Auto) 0.01 K/uL (0.00-0.02) 06/03/21 18:46 Sodium 133 mmol/L (136-145) L 06/03/21 18:46 Potassium 3.7 mmol/L (3.5-5.1) 06/03/21 18:46 Chloride 102 mmol/L (98-107) 06/03/21 18:46 Carbon Dioxide 24 mmol/L (21-32) 06/03/21 18:46 Anion Gap 7.0 (3-11) 06/03/21 18:46 BUN 34 mg/dl (7-18) H 06/03/21 18:46 Creatinine 1.39 mg/dl (0.6-1.4) 06/03/21 18:46 Est Cr Clr Drug Dosing 43.1 ml/min 06/03/21 18:46 Est GFR ( Amer) 56.3 ml/min 06/03/21 18:46 Est GFR (Non-Af Amer) 48.5 ml/min 06/03/21 18:46 BUN/Creatinine Ratio 24.3 (10-20) H 06/03/21 18:46 Glucose 89 mg/dl (70-99) 06/03/21 18:46 Calcium 7.9 mg/dl (8.5-10.1) L 06/03/21 18:46 Magnesium 2.3 mg/dl (1.8-2.4) 06/03/21 18:46 Total Bilirubin 0.6 mg/dl (0.2-1) 06/03/21 18:46 AST 199 U/L (15-37) H 06/03/21 18:46 ALT 67 U/L (12-78) 06/03/21 18:46 Alkaline Phosphatase 80 U/L (45-117) 06/03/21 18:46 Total Creatine Kinase 5566 U/L (39-308) H 06/03/21 18:46 Troponin I 0.032 ng/ml (0-0.045) 06/03/21 18:46 Total Protein 7.0 gm/dl (6.4-8.2) 06/03/21 18:46 Albumin 2.9 gm/dl (3.4-5.0) L 06/03/21 18:46 Globulin 4.1 gm/dl (2.5-4.0) H 06/03/21 18:46 Albumin/Globulin Ratio 0.7 (0.9-2) L 06/03/21 18:46 TSH 1.580 uIu/ml (0.300-4.500) 06/03/21 18:46 Impressions Chest X-Ray 06/03/21 18:24 XR chest 1V portable HISTORY: weakness/COVID COMPARISON: Chest 06/01/2021. FINDINGS: Shunt tubing is again noted along the right side of the chest and crosses over the midline within the upper abdomen. The tubing appears intact. No pneumothorax. No pleural effusions. The heart is normal in size. No focal lung consolidations to suggest pneumonia. No evidence for pulmonary edema. IMPRESSION: No significant change compared to the prior study. No acute process. ACT 112: Negative or not required by law. Electronically signed by: Abhay Trevizo M.D. 06/03/2021 8:[address] 06/03/21 18:[address] DOSE: 537.48 mGy.cm HISTORY: weakness TECHNIQUE: Multiaxial CT images of the head were performed without the use of intravenous contrast. Automated exposure control was utilized for this study. A dose lowering technique was utilized adhering to the principles of ALARA. Comparison: Head CT 05/30/2021. Findings: The paranasal sinuses and mastoid air cells are clear. The calvarium and skull base are intact. There is no mass, hematoma, midline shift, acute infarct. Right frontal approach ventriculostomy catheter terminates in the frontal horn of the right lateral ventricle. This is unchanged in position. Stable mild prominence of the lateral ventricles. Impression: No significant change compared to the prior study. No acute intracranial abnormality. ACT 112: Negative or not required by law. Electronically signed by: Abhay Trevizo M.D. 06/03/2021 7:53 PM Code Status & VTE Plan Code Status Full code VTE Prophylaxis Plan VTE Prophylaxis will be ordered: Yes PG Care Time/CCT Total # of Minutes Spent Total Time Spent with Patient: Total time spent is greater than 50% in coordination of care (as documented) at patient's floor/unit and/or counseling patient: Coding Level of Care Code 23139 Initial Inpt Care Lvl 3 Diagnoses COVID-19 U07.1 Acute confusion R41.0 Rhabdomyolysis due to COVID-19 U07.1; M62.82 NPH (normal pressure hydrocephalus) G91.2 Mild cognitive impairment G31.84
[2021-06-03] MEDS ORDERED: DEXAMETHASONE SOD INJ 4 MG/ML VIAL IV STA (21:14)
[2021-06-03] MEDS ORDERED: ONDANSETRON INJ 2 MG/ML 2 ML VIAL IV PRN (23:05)
[2021-06-03] MEDS ORDERED: ACETAMINOPHEN 325 MG TAB PO PRN (23:05)
[2021-06-03] MEDS ORDERED: ALUMINUM/MAGNESIUM SUSP 30 ML UDC PO PRN (23:05)
[2021-06-03] MEDS ORDERED: MAGNESIUM HYDROXIDE SUSP 30 ML UDC PO PRN (23:05)
[2021-06-03] MEDS ORDERED: ENOXAPARIN INJ 30 MG/0.3 ML SYR SQ SCH (23:45)
[2021-06-04] MEDS: SODIUM CHLORIDE 0.9% 1000ML 1,000 ML IV SCH ×2 (00:56→13:23)
[2021-06-04 06:28] LABS: Basophils # (auto) 0.01 K/uL (0-0.2); Basophils % (auto) 0.2 %; Hematocrit (blood only) 41.9 % (42-52); Hemoglobin 14.3 g/dL (14.0-18.0); Immature Granulocytes # (auto) 0.03 K/uL (0.00-0.02); Immature Granulocytes % (auto) 0.6 %; Lymphocytes # (auto) 1.08 K/uL (1.2-3.4); Lymphocytes % (auto) 19.8 %; Mean Corpuscular Hemoglobin 29.4 pg (25-34); Mean Corpuscular Hgb Conc 34.1 g/dL (32-36); Mean Corpuscular Volume 86.2 fL (80-100); Mean Platelet Volume 10.8 fL (7.4-10.4); Monocytes # (auto) 0.34 K/uL (0.11-0.59); Monocytes % (auto) 6.2 %; Neutrophils # (auto) 3.99 K/uL (1.4-6.5); Neutrophils % (auto) 73.2 %; Platelet Count 142 K/uL (130-400); RDW Coefficient of Variation 14.1 % (11.5-14.5); RDW Standard Deviation 44.3 fL (36.4-46.3); Red Blood Count 4.86 M/uL (4.7-6.1); White Blood Count 5.45 K/uL (4.8-10.8)
[2021-06-04 06:52] LABS: Albumin Level 2.5 gm/dl (3.4-5.0); BUN Creatinine Ratio 24.4 (10-20); Calcium 7.9 mg/dl (8.5-10.1); Est GFR (African American) 72.3 ml/min; Est GFR (Non-African American) 62.4 ml/min; Potassium 3.6 mmol/L (3.5-5.1)
[2021-06-04 07:06] LABS: Albumin Globulin Ratio 0.7 (0.9-2); Bilirubin,Total 0.6 mg/dl (0.2-1); Globulin 3.8 gm/dl (2.5-4.0); Total Protein 6.3 gm/dl (6.4-8.2)
[2021-06-04] MEDS ORDERED: dexAMETHasone 6 MG in SYRINGE 0 ML IV SCH (09:00)
--- NOTE | 2021-06-04 12:20 | Hospitalist Progress Note ---
Date of Service June 04, 2021 Assessment & Plan (1) COVID-19: Plan: First symptoms approx. 2 weeks ago. - Not a candidate for remdesivir - Dexamethasone 6 mg PO daily x 8 days - Monitor O2; presently at 94% on room air. - PT/OT (2) Rhabdomyolysis due to COVID-19: Plan: CK was 5566 on admission. - Down to 4000 today; no renal failure at this time. - Continue IV fluids (3) CKD (chronic kidney disease) stage 2, GFR 60-89 ml/min: Plan: Baseline Cr 1.1 - 1.4. - Presently at baseline despite rhabdomyolysis - Monitor (4) Acute confusion: Plan: Acute confusion superimposed on mild cognitive impairment at baseline per report. Likely secondary to COVID-19, rhabdomyolysis, dehydration. 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 Last seen at [place] on 05/18/2021 with stable findings at that time. Still has gait abnormalities from his NPH including right foot drop. - CT head on 06/03 was unchanged from priors. No acute issues. - Monitor (6) Mild cognitive impairment: Plan: Presumed due to NPH. - See above (7) DVT prophylaxis: Plan: Lovenox 40 mg SQ daily Admission and Anticipated Discharge Date Admission Date: June 03, 2021 Subjective Reports still feeling weak. Some mild subjective shortness of breath. Reports no fevers/chills, chest pain, abdominal pain, nausea, or vomiting. Physical Exam Constitutional: WD/WN, vitals as above Eyes: EOM intact bilaterally; no conjunctival abnormality ENMT: external ear and nose normal, oropharynx normal Neck: trachea midline, no thyromegaly normal visual inspection Respiratory: normal respiratory effort, lungs clear to auscultation no respiratory distress Cardiovascular: RRR, no murmur, no edema Gastrointestinal (Abdomen): Inspection/Auscultation: abdomen normal to inspection; abdomen not distended Musculoskeletal: no cyanosis or clubbing, extremities motor strength 5/5 Skin: no rashes, warm and dry Neurologic: moves all extremities and awake Psychiatric: Orientation: alert, oriented to person and cooperative Results & Data Results & Data ([facility]) Vital Signs (Past 12 Hours) Vital Signs Temp Pulse Resp BP Pulse Ox 06/04/21 07:55 37.1 C 90 16 124/75 94 PG Care Time/CCT Total # of Minutes Spent Total Time Spent with Patient: Total time spent is greater than 50% in coordination of care (as documented) at patient's floor/unit and/or counseling patient: Coding Level of Care Code 65170 Subseq Hosp Care Lvl 3 Diagnoses COVID-19 U07.1 Rhabdomyolysis due to COVID-19 U07.1; M62.82 Acute confusion R41.0 NPH (normal pressure hydrocephalus) G91.2 Mild cognitive impairment G31.84 DVT prophylaxis Z29.9 CKD (chronic kidney disease) stage 2, GFR 60-89 ml/min N18.2
--- NOTE | 2021-06-04 12:26 | Electrocardiogram Report ---
Test Reason : Blood Pressure : / mmHG Vent. Rate : 079 BPM Atrial Rate : 079 BPM P-R Int : 120 ms QRS Dur : 088 ms QT Int : 384 ms P-R-T Axes : 053 -24 -04 degrees QTc Int : 440 ms Poor data quality, interpretation may be adversely affected Normal sinus rhythm Nonspecific ST abnormality When compared with ECG of 01-JUN-2021 15:49, No significant change was found Confirmed by Mart Taalvera ([id number]) on 06/04/2021 12:26:32 PM Referred By: REFERRED SELF Confirmed By:Boy Talavera
[2021-06-04] MEDS: ENOXAPARIN INJ 40 MG/0.4 ML SYR SQ SCH (22:04)
[2021-06-05] MEDS: dexAMETHasone 4 MG TAB PO SCH (08:55)
[2021-06-05 09:18] LABS: Basophils # (auto) 0.01 K/uL (0-0.2); Basophils % (auto) 0.2 %; Hematocrit (blood only) 44.7 % (42-52); Hemoglobin 15.4 g/dL (14.0-18.0); Immature Granulocytes # (auto) 0.04 K/uL (0.00-0.02); Immature Granulocytes % (auto) 0.6 %; Lymphocytes # (auto) 0.91 K/uL (1.2-3.4); Lymphocytes % (auto) 14.7 %; Mean Corpuscular Hemoglobin 29.6 pg (25-34); Mean Corpuscular Hgb Conc 34.5 g/dL (32-36); Mean Platelet Volume 11.2 fL (7.4-10.4); Monocytes # (auto) 0.31 K/uL (0.11-0.59); Neutrophils # (auto) 4.92 K/uL (1.4-6.5); Neutrophils % (auto) 79.5 %; Platelet Count 166 K/uL (130-400); RDW Coefficient of Variation 13.8 % (11.5-14.5); RDW Standard Deviation 43.5 fL (36.4-46.3); White Blood Count 6.19 K/uL (4.8-10.8)
[2021-06-05 09:45] LABS: Albumin Level 2.5 gm/dl (3.4-5.0); Calcium 7.7 mg/dl (8.5-10.1); Creatinine Clr Calc Pharmacy 49.1 ml/min; Est GFR (African American) 65.9 ml/min; Est GFR (Non-African American) 56.8 ml/min; Potassium 3.9 mmol/L (3.5-5.1)
[2021-06-05 10:01] LABS: Albumin Globulin Ratio 0.6 (0.9-2); Bilirubin,Total 0.5 mg/dl (0.2-1); Globulin 4.1 gm/dl (2.5-4.0); Total Protein 6.6 gm/dl (6.4-8.2)
--- NOTE | 2021-06-05 11:30 | XRay Report ---
XR chest 1V portable HISTORY: 76 years-old Male Hypoxemia, Covid acute hypoxia with Covid COMPARISON: Chest radiograph 06/03/2021 TECHNIQUE: Portable AP view of the chest FINDINGS: The cardiomediastinal and hilar silhouettes are unchanged. Partially imaged tubing projects over the right neck, chest and upper abdomen with image portions appearing intact. Mild chronic interstitial c oarsening. There is no pneumothorax, large pleural effusion, airspace consolidation or overt pulmonar y edema. Blunting of the costophrenic angles suggests atelectasis versus trace effusion. Degenerative changes of the shoulders and spine. IMPRESSION: Stable exam. No acute process. ACT 112: Negative or not required by law. The above report was generated using voice recognition software. It may contain grammatical, syntax o r spelling errors. Electronically signed by: Saleem Shin M.D. 06/05/2021 11:29 AM
--- NOTE | 2021-06-05 14:43 | Hospitalist Progress Note ---
Date of Service June 05, 2021 Assessment & Plan (1) COVID-19: Plan: First symptoms approx. 2 weeks ago. - Not a candidate for remdesivir - Dexamethasone 6 mg PO daily x 8 days - Monitor O2; presently at 99% on room air. - PT/OT -> RN notes that the patient is very unsteady. (2) Rhabdomyolysis due to COVID-19: Plan: CK was 5566 on admission. - Down to 1999 today; no renal failure at this time. - Stop IV fluids (3) CKD (chronic kidney disease) stage 2, GFR 60-89 ml/min: Plan: Baseline Cr 1.1 - 1.4. - Presently at baseline despite rhabdomyolysis - Monitor (4) Acute confusion: Plan: Acute confusion superimposed on mild cognitive impairment at baseline per report. Likely secondary to COVID-19, rhabdomyolysis, dehydration. - Monitor (5) NPH (normal pressure hydrocephalus): Plan: RAG INSPECTOR shunt placed at [facility] in 2018. Last seen at [place] on 05/18/2021 with stable findings at that time. Still has gait abnormalities from his NPH including right foot drop. - CT head on 06/03 was unchanged from priors. No acute issues. - Monitor (6) Mild cognitive impairment: Plan: Presumed due to NPH. - See above (7) DVT prophylaxis: Plan: Lovenox 40 mg SQ daily Admission and Anticipated Discharge Date Admission Date: June 03, 2021 Subjective Doing some better today. Feels less weak. Had a more peaceful night. Reports no fevers/chills, chest pain, shortness of breath, abdominal pain, nausea, or vomiting. Physical Exam Constitutional: WD/WN, vitals as above Eyes: EOM intact bilaterally; no conjunctival abnormality ENMT: external ear and nose normal, oropharynx normal Neck: trachea midline, no thyromegaly normal visual inspection Respiratory: normal respiratory effort, lungs clear to auscultation no respiratory distress Cardiovascular: RRR, no murmur, no edema Gastrointestinal (Abdomen): Inspection/Auscultation: abdomen normal to i nspection; abdomen not distended Musculoskeletal: no cyanosis or clubbing, extremities motor strength 5/5 Skin: no rashes, warm and dry Neurologic: moves all extremities and awake Psychiatric: Orientation: alert, oriented to person and cooperative Results & Data Results & Data ([facility]) Vital Signs (Past 12 Hours) Vital Signs Temp Pulse Resp BP Pulse Ox 06/05/21 08:49 36.3 C L 61 18 146/85 H 99 06/05/21 08:21 36.6 C 61 16 153/88 H 95 PG Care Time/CCT Total # of Minutes Spent Total Time Spent with Patient: Total time spent is greater than 50% in coordination of care (as documented) at patient's floor/unit and/or counseling patient: Coding Level of Care Code 83704 Subseq Hosp Care Lvl 2 Diagnoses COVID-19 U07.1 Rhabdomyolysis due to COVID-19 U07.1; M62.82 CKD (chronic kidney disease) stage 2, GFR 60-89 ml/min N18.2 Acute confusion R41.0 NPH (normal pressure hydrocephalus) G91.2 Mild cognitive impairment G31.84 DVT prophylaxis Z29.9
[2021-06-05] MEDS: ENOXAPARIN INJ 40 MG/0.4 ML SYR SQ SCH (21:52)
[2021-06-06 06:04] LABS: Basophils # (auto) 0.01 K/uL (0-0.2); Basophils % (auto) 0.1 %; Hematocrit (blood only) 41.5 % (42-52); Hemoglobin 14.3 g/dL (14.0-18.0); Immature Granulocytes # (auto) 0.03 K/uL (0.00-0.02); Immature Granulocytes % (auto) 0.4 %; Lymphocytes # (auto) 0.71 K/uL (1.2-3.4); Lymphocytes % (auto) 8.8 %; Mean Corpuscular Hemoglobin 29.4 pg (25-34); Mean Corpuscular Hgb Conc 34.5 g/dL (32-36); Mean Corpuscular Volume 85.2 fL (80-100); Mean Platelet Volume 10.6 fL (7.4-10.4); Monocytes # (auto) 0.51 K/uL (0.11-0.59); Monocytes % (auto) 6.3 %; Neutrophils # (auto) 6.79 K/uL (1.4-6.5); Neutrophils % (auto) 84.4 %; Platelet Count 174 K/uL (130-400); RDW Coefficient of Variation 13.9 % (11.5-14.5); RDW Standard Deviation 43.6 fL (36.4-46.3); Red Blood Count 4.87 M/uL (4.7-6.1); White Blood Count 8.05 K/uL (4.8-10.8)
[2021-06-06 06:39] LABS: Albumin Level 2.3 gm/dl (3.4-5.0); BUN Creatinine Ratio 30.7 (10-20); Calcium 8.1 mg/dl (8.5-10.1); Creatinine Clr Calc Pharmacy 57.5 ml/min; Est GFR (African American) 79.9 ml/min; Est GFR (Non-African American) 68.9 ml/min; Potassium 3.9 mmol/L (3.5-5.1)
[2021-06-06 06:42] LABS: Albumin Globulin Ratio 0.6 (0.9-2); Bilirubin,Total 0.3 mg/dl (0.2-1); Globulin 3.8 gm/dl (2.5-4.0); Total Protein 6.1 gm/dl (6.4-8.2)
[2021-06-06] MEDS: dexAMETHasone 4 MG TAB PO SCH (09:03)
--- NOTE | 2021-06-06 13:06 | Discharge Summary ---
Date of Service June 06, 2021 Admission HPI Per Admitting Provider The patient is a 76-year-old male with a past medical history including renal cell carcinoma, carpal tunnel syndrome, abnormal brain MRI, BPH with LUTS, gait apraxia, hyperlipidemia, urinary incontinence, lumbar radiculopathy, mild cognitive impairment, NPH, strokelike symptoms, and vasovagal response. The patient had been seen in the emergency department on 06/01/2021, and COVID-19 testing at that time was positive. He is brought into the emergency department by family with the above complaint. The patient himself is is somewhat lethargic, and unable to significantly relay any information to me regarding his HPI or review of systems. Principal Diagnosis Covid-19, rhabdomyolysis Discharge Exam Constitutional WD/WN, vitals as above Eyes EOM intact bilaterally; no conjunctival abnormality ENMT external ear and nose normal, oropharynx normal Neck trachea midline, no thyromegaly normal visual inspection Respiratory normal respiratory effort, lungs clear to auscultation no respiratory distress Cardiovascular RRR, no murmur, no edema Gastrointestinal (Abdomen) Inspection/Auscultation: abdomen normal to inspection; abdomen not distended Musculoskeletal no cyanosis or clubbing, extremities motor strength 5/5 Skin no rashes, warm and dry Neurologic moves all extremities and awake Psychiatric Orientation: alert, oriented to person and cooperative Discharge Data Allergies Allergy/AdvReac Type Severity Reaction Status Date / Time cat dander Allergy Verified 06/03/21 20:34 No Known Drug Allergies Allergy Verified 06/03/21 20:34 Consultations 06/03/21 20:54 ED Decision to Admit Stat Ordered Studies 06/03/21 18:24 CT head/brain wo con Stat Hospital Course (1) COVID-19: First symptoms approx. 2 weeks ago. - Not a candidate for remdesivir - Dexamethasone 6 mg PO daily while inpatient, but given he actually did not ever need O2, I do not think he needs it. In RECOVERY trial, people without O2 need actually faired worse with steroids, so do not think it is advisable to continue. - Monitor O2; presently at 99% on room air. - PT/OT -> RN notes that the patient is very unsteady. Will have PT see him and arrange home services. (2) Rhabdomyolysis due to COVID-19: CK was 5566 on admission. - Down to 1000 today; no renal failure at this time. - Finished IV fluids (3) CKD (chronic kidney disease) stage 2, GFR 60-89 ml/min: Baseline Cr 1.1 - 1.4. - Presently at baseline despite rhabdomyolysis - Monitor (4) Acute confusion: Acute confusion superimposed on mild cognitive impairment at baseline per report. Likely secondary to COVID-19, rhabdomyolysis, dehydration. - Monitor (5) NPH (normal pressure hydrocephalus): INFORMATION RECEPTIONIST shunt placed at [facility] in 2018. Last seen at [place] on 05/18/2021 with stable findings at that time. Still has gait abnormalities from his NPH including right foot drop. - CT head on 06/03 was unchanged from priors. No acute issues. - Monitor (6) Mild cognitive impairment: Presumed due to NPH. - See above (7) DVT prophylaxis: Lovenox 40 mg SQ daily Total Time Total Time Spent Total Time Spent (In Minutes): 35 Discharge Plan Discharge Items Patient Disposition: Home - Home Health Services Reason For Visit: COVID-19, RHABDO, WEAKNESS Discharge Diagnosis: Covid-19, causing weakness and muscle injury; resolving by discharge Activity: Resume your previous activity Non-emergency contact: Primary Care Provider Call non-emergency contact if: your symptoms worsen Follow-up/Referrals: Elijah Marcos [Primary Care Provider] - Diet: Regular Addtl Attending Provider Instructions: Mr. Almanza, You had Covid-19 which caused you to get dehydrated and caused some muscle damage. Luckily, with some IV fluids, we are getting you feeling better. Your appetitie is improving, and we feel you are safe to go home. We will help arrange any home services we can to help support you. Please take care! Pending Studies at Discharge: No Stand-Alone Forms: My [facility] [employer], Smoking Cessation Medications and DC Order Prescriptions: Continued CardioVid PLUS [id number] [id number] capsule 1 cap PO DAILY RF: 0 multivitamin Tablet 1 tab PO DAILY RF: 0 amino acids Capsule 1 cap PO DAILY RF: 0 vit A and D3 in cod liver oil [cod liver oil] 1,250-135 unit Capsule 1 cap PO DAILY RF: 0 Probiotic 3 billion cell Capsule 0 mmu cells PO DAILY RF: 0 ascorbic acid (vitamin C) 250 mg Tablet 0 mg PO DAILY RF: 0 Discharge Orders: Discharge Order (Routine); Ordered 06/06/21 Ordered By: Leonel Henderson/Other Patient Handouts: Preventing Deep Vein Thrombosis Admission Data Admit Date/Time: 06/03/21 21:10 Attending Provider: Leonel Villatoro Admit Provider: Quoc Negron Primary Care Provider: Elijah Marcos Other Providers: Leonel Villatoro ; Jhony Walker [facility] Coding Level of Care Code D/C DAY MANAGEMENT >30 MINS Diagnoses COVID-19 U07.1 Rhabdomyolysis due to COVID-19 U07.1; M62.82 CKD (chronic kidney disease) stage 2, GFR 60-89 ml/min N18.2 Acute confusion R41.0 NPH (normal pressure hydrocephalus) G91.2 Mild cognitive impairment G31.84 DVT prophylaxis Z29.9
== END 2021-06-06 14:22 | disposition home health service (06) | DRG 178 ==
LOC: ED 18:10 → 3E 21:10 → SUATTDRO 21:10 → 3E 23:55